=== PATIENT | female | born 1965 | race African-American/Black ===

== ENCOUNTER 2016-07-03 11:11 | Emergency (ER) | payer SELFPAY ==
[~2016-07-03] VITALS: Ht 180.3 cm; Wt 60.0 kg
[~2016-07-03 11:11] MED LIST: NAPROSYN500 MG PO; OXYCO/APAP1 TA5 PO; PERCOCET 5/325M1 TAB PO
[2016-07-03] MEDS ORDERED: BUPROPION150 M3 PO (11:50)
[2016-07-03] MEDS ORDERED: TRAZODONE50 MG PO (11:50)
[2016-07-03 12:05] LABS: HEMATOCRIT 37.4 % (37.0-47.0); HEMOGLOBIN 12.6 g/dl (12.0-16.0); IMMATURE GRANULOCYTES 0.2 % (0.0-1.0); MEAN CELL VOLUME 94.4 fL CALC (80.0-100.0); MEAN CORPUSCULAR HGB 31.8 pG CALC (26.0-32.0); MEAN CORPUSCULAR HGB CONC 33.7 g/L CALC (32.0-36.0); NEUT# 3.45 thou/uL (2.00-7.15); RED BLOOD COUNT 3.96 mill/uL (4.20-5.60); RED CELL DISTRI WIDTH 14.2 % (11.5-15.5)
[2016-07-03 12:56] LABS: ALBUMIN 4.1 g/dL (3.2-5.0); ALKALINE PHOSPHATASE 78 u/l (38-126); ANION GAP 12 (6-22 (CALC)); BILIRUBIN, TOTAL 0.7 mg/dL (0.0-1.4); BUN 12 mg/dL (7-17); BUN/CREATININE RATIO 15 (12-20 (CALC)); CALCIUM 8.9 mg/dL (8.4-10.2); CARBON DIOXIDE 27 mmol/l (22-30); CHLORIDE 105 mmol/l (95-108); CREATININE 0.8 mg/dL (0.5-1.0); GFR > 60 ML/MIN (>=60 (CALC)); GFR FOR AFR.AMER. > 60 ML/MIN (>=60 (CALC)); GLUCOSE 93 mg/dL (65-105); POTASSIUM 4.1 mmol/l (3.5-5.1); SGOT/AST 45 u/l (14-36); SGPT/ALT 18 u/l (9-52); SODIUM 141 mmol/l (137-146); TOTAL PROTEIN 7.8 g/dL (6.3-8.2)
[2016-07-03 13:15] LABS: MYOGLOBIN 24 ng/mL (0 - 62)
[2016-07-03] MEDS ORDERED: NEXIUM40 M1 PO (13:54)
[2016-07-03 14:29] VITALS: BP 108/56
== END 2016-07-03 14:29 | disposition home or self-care (01) | DRG 392 ==
LOC: ED 11:11
PROVIDERS: Emergency Medicine
DX: K21.9 Gastro-esophageal reflux disease without esophagitis (principal); F32.9 Major depressive disorder, single episode, unspecified; F17.210 Nicotine dependence, cigarettes, uncomplicated; Z85.3 Personal history of malignant neoplasm of breast; Z90.13 Acquired absence of bilateral breasts and nipples

== ENCOUNTER 2017-02-05 11:29 | Emergency (ER) | payer SELFPAY ==
[~2017-02-05] VITALS: Ht 180.3 cm; Wt 60.0 kg
[~2017-02-05 11:29] MED LIST changes: +BUPROPION150 M3 PO; +NEXIUM40 M1 PO; +TRAZODONE50 MG PO
[2017-02-05 12:34] LABS: HEMATOCRIT 38.4 % (37.0-47.0); HEMOGLOBIN 12.7 g/dl (12.0-16.0); IMMATURE GRANULOCYTES 0.2 % (0.0-1.0); MEAN CELL VOLUME 95.5 fL CALC (80.0-100.0); MEAN CORPUSCULAR HGB 31.6 pG CALC (26.0-32.0); MEAN CORPUSCULAR HGB CONC 33.1 g/L CALC (32.0-36.0); NEUT# 3.04 thou/uL (2.00-7.15); RED BLOOD COUNT 4.02 mill/uL (4.20-5.60); RED CELL DISTRI WIDTH 13.5 % (11.5-15.5)
[2017-02-05 12:39] LABS: INTERNATIONAL NORMALIZED RATIO 0.9 RATIO (0.7-1.3); PROTHROMBIN TIME 10.1 SECONDS (9.0-12.5)
[2017-02-05 12:55] LABS: ALBUMIN 4.2 g/dL (3.2-5.0); ALKALINE PHOSPHATASE 106 u/l (38-126); ANION GAP 14 (6-22 (CALC)); BILIRUBIN, TOTAL 0.3 mg/dL (0.0-1.4); BUN 16 mg/dL (7-17); BUN/CREATININE RATIO 19 (12-20 (CALC)); CALCIUM 9.6 mg/dL (8.4-10.2); CARBON DIOXIDE 26 mmol/l (22-30); CHLORIDE 107 mmol/l (95-108); CREATININE 0.8 mg/dL (0.5-1.0); GFR > 60 ML/MIN (>=60 (CALC)); GFR FOR AFR.AMER. > 60 ML/MIN (>=60 (CALC)); GLUCOSE 100 mg/dL (65-105); POTASSIUM 4.2 mmol/l (3.5-5.1); SGOT/AST 35 u/l (14-36); SGPT/ALT 44 u/l (9-52); SODIUM 142 mmol/l (137-146)
[2017-02-05 13:05] LABS: MYOGLOBIN 23 ng/mL (0 - 62)
[2017-02-05] MEDS ORDERED: EC-NAPROSYN500 MG PO (15:43)
[2017-02-05] MEDS ORDERED: LORTAB 5/3255 MG PO (15:43)
[2017-02-05 15:52] VITALS: BP 132/70
== END 2017-02-05 16:00 | disposition home or self-care (01) | DRG 313 ==
LOC: ED 11:29
PROVIDERS: Emergency Medicine
DX: R07.89 Other chest pain (principal); Z85.3 Personal history of malignant neoplasm of breast
CPT/HCPCS: J1650; Q9967

== ENCOUNTER 2017-03-18 19:24 | Emergency (ER) | payer SELFPAY ==
[~2017-03-18] VITALS: Ht 180.3 cm; Wt 59.0 kg
[~2017-03-18 19:24] MED LIST changes: +EC-NAPROSYN500 MG PO; +LORTAB 5/3255 MG PO
[2017-03-18] MEDS ORDERED: LORTAB 1010 MG PO (22:23)
[2017-03-18 22:30] VITALS: BP 149/86
== END 2017-03-18 22:30 | disposition home or self-care (01) | DRG 552 ==
LOC: ED 19:24
DX: S32.039A Unspecified fracture of third lumbar vertebra, initial encounter for closed fracture (principal); M54.6 Pain in thoracic spine; R20.0 Anesthesia of skin; Y93.83 Activity, rough housing and horseplay; Y92.009 Unspecified place in unspecified non-institutional (private) residence as the place of occurrence of the external cause

== ENCOUNTER 2017-05-01 23:19 | Emergency (ER) | payer SELFPAY ==
[~2017-05-01] VITALS: Ht 180.3 cm; Wt 60.2 kg
[~2017-05-01 23:19] MED LIST changes: +LORTAB 1010 MG PO
[2017-05-02] MEDS ORDERED: PERCOCET 5/325M1 TAB PO (02:06)
[2017-05-02 03:00] VITALS: BP 122/67
== END 2017-05-02 03:30 | disposition home or self-care (01) | DRG 563 ==
LOC: ED 23:19
PROC: 2W3CX1Z Immobilization of Right Lower Arm using Splint (ICD-10-PCS; principal; 2017-05-02)
DX: S52.501A Unspecified fracture of the lower end of right radius, initial encounter for closed fracture (principal); R07.89 Other chest pain; S52.611A Displaced fracture of right ulna styloid process, initial encounter for closed fracture; W01.0XXA Fall on same level from slipping, tripping and stumbling without subsequent striking against object, initial encounter; Y93.9 Activity, unspecified; Y92.410 Unspecified street and highway as the place of occurrence of the external cause

== ENCOUNTER 2017-06-23 14:42 | Emergency (ER) | payer SELFPAY ==
[~2017-06-23] VITALS: Ht 180.3 cm; Wt 65.0 kg
[2017-06-23] MEDS ORDERED: MOTRIN400 MG PO (16:24)
[2017-06-23 16:30] VITALS: BP 119/65
== END 2017-06-23 16:30 | disposition home or self-care (01) | DRG 313 ==
LOC: ED 14:42
DX: R07.89 Other chest pain (principal); F32.9 Major depressive disorder, single episode, unspecified; G47.00 Insomnia, unspecified; Z85.3 Personal history of malignant neoplasm of breast

== ENCOUNTER 2018-01-04 21:03 | Emergency (ER) | payer SELFPAY ==
[~2018-01-04] VITALS: Ht 180.3 cm; Wt 59.0 kg
[~2018-01-04 21:03] MED LIST changes: +MOTRIN400 MG PO
[2018-01-04 22:07] LABS: URINE BILIRUBIN - DIPSTICK NEGATIVE (NEGATIVE); URINE BLOOD DIPSTICK SMALL (NEGATIVE); URINE COLOR YELLOW; URINE GLUCOSE - DIPSTICK NEGATIVE (NEGATIVE); URINE KETONE TRACE mg/dL (NEGATIVE); URINE LEUK ESTERASE NEGATIVE (NEGATIVE); URINE NITRITE - DIPSTICK NEGATIVE (Negative); URINE PROTEIN - DIPSTICK NEGATIVE (NEG-TRACE); URINE SPECIFIC GRAVITY >=1.030; URINE UROBILINOGEN - DIPSTICK 0.2 E.U./dL (0.2)
[2018-01-04 22:10] LABS: URINE CLARITY HAZY
[2018-01-04 22:16] LABS: URINE CALCIUM OXALATE CRYSTALS FEW lpf; URINE RBC 0-2 RBC/hpf (0-5); URINE SQUAMOUS EPITHELIAL CELL FEW EPI/hpf (0-FEW)
[2018-01-04 22:19] LABS: INFLUENZA A NONE DETECTED (NONE DETECT); INFLUENZA B NONE DETECTED (NONE DETECT)
[2018-01-04 22:56] LABS: HEMATOCRIT 38.6 % (37.0-47.0); HEMOGLOBIN 12.8 g/dl (12.0-16.0); IMMATURE GRANULOCYTES 0.4 % (0.0-5.0); MEAN CORPUSCULAR HGB 31.8 pG CALC (26.0-32.0); MEAN CORPUSCULAR HGB CONC 33.2 g/L CALC (32.0-36.0); NEUT# 4.18 thou/uL (2.00-7.15); RED BLOOD COUNT 4.02 mill/uL (4.20-5.60); RED CELL DISTRI WIDTH 14.7 % (11.5-15.5)
[2018-01-04 23:03] LABS: ALBUMIN 4.1 g/dL (3.2-5.0); ALKALINE PHOSPHATASE 91 u/l (38-126); ANION GAP 14 (6-22 (CALC)); BILIRUBIN, TOTAL 0.3 mg/dL (0.0-1.4); BUN 11 mg/dL (7-17); BUN/CREATININE RATIO 16 (12-20 (CALC)); CARBON DIOXIDE 25 mmol/l (22-30); CHLORIDE 104 mmol/l (95-108); CREATININE 0.7 mg/dL (0.5-1.0); GFR > 60 ML/MIN (>=60 (CALC)); GFR FOR AFR.AMER. > 60 ML/MIN (>=60 (CALC)); POTASSIUM 3.9 mmol/l (3.5-5.1); SGOT/AST 24 u/l (14-36); SODIUM 139 mmol/l (137-146); TOTAL PROTEIN 7.2 g/dL (6.3-8.2)
[2018-01-04] MEDS ORDERED: BACTRIM DS1 TAB PO (23:06)
[2018-01-04] MEDS ORDERED: ROBITUSSIN AC10 ML PO (23:06)
[2018-01-05 00:12] VITALS: BP 96/54
== END 2018-01-05 00:12 | disposition home or self-care (01) | DRG 153 ==
LOC: ED 21:03
PROVIDERS: Emergency Medicine
DX: J06.9 Acute upper respiratory infection, unspecified (principal); N39.0 Urinary tract infection, site not specified; F32.9 Major depressive disorder, single episode, unspecified; F17.200 Nicotine dependence, unspecified, uncomplicated; G47.00 Insomnia, unspecified; Z85.3 Personal history of malignant neoplasm of breast

== ENCOUNTER 2019-01-01 18:01 | Emergency (ER) | payer OTHER ==
[~2019-01-01] VITALS: Ht 180.3 cm; Wt 61.0 kg
[~2019-01-01 18:01] MED LIST changes: +BACTRIM DS1 TAB PO; +ROBITUSSIN AC10 ML PO
[2019-01-01] MEDS ORDERED: NAPROXEN500 MG PO (20:11)
[2019-01-01 20:15] VITALS: BP 114/57
== END 2019-01-01 20:20 | disposition home or self-care (01) | DRG 552 ==
LOC: ED 18:01
DX: S13.9XXA Sprain of joints and ligaments of unspecified parts of neck, initial encounter (principal); S33.5XXA Sprain of ligaments of lumbar spine, initial encounter; S20.211A Contusion of right front wall of thorax, initial encounter; V43.62XA Car passenger injured in collision with other type car in traffic accident, initial encounter

== ENCOUNTER 2020-04-26 16:48 | Emergency (ER) | payer SELFPAY ==
[~2020-04-26] VITALS: Ht 180.3 cm; Wt 59.0 kg
[~2020-04-26 16:48] MED LIST changes: +NAPROXEN500 MG PO
[2020-04-26 18:00] VITALS: BP 147/88
[2020-04-26 18:07] LABS: HEMATOCRIT 38.9 % (37.0-47.0); HEMOGLOBIN 12.7 g/dl (12.0-16.0); IMMATURE GRANULOCYTES 0.2 % (0.0-5.0); MEAN CELL VOLUME 94.9 fL CALC (80.0-100.0); MEAN CORPUSCULAR HGB CONC 32.6 g/dL CAL (32.0-36.0); NEUT# 9.05 thou/uL (2.00-7.15); RED BLOOD COUNT 4.1 mill/uL (4.20-5.60); RED CELL DISTRI WIDTH 14.1 % (11.5-15.5)
[2020-04-26] MEDS ORDERED: LORTAB 1010 MG PO (18:20)
[2020-04-26] MEDS ORDERED: KEFLEX500 M1 PO (18:20)
[2020-04-26] MEDS ORDERED: BACTRIM DS1 TAB PO (18:20)
[2020-04-26 18:25] LABS: ALBUMIN 4.5 g/dL (3.2-5.0); ALKALINE PHOSPHATASE 87 u/l (38-126); ANION GAP 10 (6-22 (CALC)); BUN 9 mg/dL (7-17); BUN/CREATININE RATIO 12 (12-20 (CALC)); CARBON DIOXIDE 28 mmol/l (22-30); CHLORIDE 101 mmol/l (95-108); CREATININE 0.8 mg/dL (0.5-1.0); GFR > 60 ML/MIN (>=60 (CALC)); GFR FOR AFR.AMER. > 60 ML/MIN (>=60 (CALC)); POTASSIUM 3.7 mmol/l (3.5-5.1); SGOT/AST 28 u/l (14-36); SODIUM 135 mmol/l (137-146); TOTAL PROTEIN 7.9 g/dL (6.3-8.2)
[2020-04-26 18:52] LABS: BILIRUBIN, TOTAL 0.7 mg/dL (0.0-1.4)
== END 2020-04-26 18:30 | disposition home or self-care (01) | DRG 603 ==
LOC: ED 16:48
PROVIDERS: Emergency Medicine
PROC: 0H98XZZ Drainage of Buttock Skin, External Approach (ICD-10-PCS; principal; 2020-04-26)
DX: L02.31 Cutaneous abscess of buttock (principal); F32.9 Major depressive disorder, single episode, unspecified

== ENCOUNTER 2020-04-27 17:57 | Emergency (ER) | payer SELFPAY ==
[~2020-04-27] VITALS: Ht 180.3 cm; Wt 65.0 kg
[~2020-04-27 17:57] MED LIST changes: +KEFLEX500 M1 PO
[2020-04-27 19:50] VITALS: BP 128/81
== END 2020-04-27 19:50 | disposition home or self-care (01) | DRG 951 ==
LOC: ED 17:57
DX: Z48.01 Encounter for change or removal of surgical wound dressing (principal)

== ENCOUNTER 2022-08-18 10:49 | Emergency (ER) | payer SELFPAY ==
[~2022-08-18] VITALS: Ht 180.3 cm; Wt 70.0 kg
[2022-08-18] VITALS (11 sets, daily range): BP systolic 113–145; BP diastolic 60–85
[2022-08-18 11:43] LABS: BASO% 0.3 % (0-3); EOS% 1.5 % (0-8); HEMATOCRIT 36.4 % (37.0-47.0); HEMOGLOBIN 11.7 g/dl (12.0-16.0); IMMATURE GRANULOCYTES 0.2 % (0.0-5.0); MEAN CELL VOLUME 96.6 fL CALC (80.0-100.0); MEAN CORPUSCULAR HGB CONC 32.1 g/dL CAL (32.0-36.0); MONO% 5.9 % (2-13); NEUT# 4.34 thou/uL (2.00-7.15); NEUT% 65.1 % (42-76); RED BLOOD COUNT 3.77 mill/uL (4.20-5.60)
[2022-08-18 12:02] LABS: ALKALINE PHOSPHATASE 86 u/l (38-126); ANION GAP 11 (6-22 (CALC)); BUN 12 mg/dL (7-17); BUN/CREATININE RATIO 16 (12-20 (CALC)); CARBON DIOXIDE 27 mmol/l (22-30); CHLORIDE 107 mmol/l (95-108); CREATININE 0.8 mg/dL (0.5-1.0); GFR FOR AFR.AMER. > 60 ML/MIN (>=60 (CALC)); GFR OTHER RACES > 60 ML/MIN (>=60 (CALC)); LIPASE 17 u/l (23-300); POTASSIUM 3.6 mmol/l (3.5-5.1); SGOT/AST 29 u/l (14-36); SODIUM 141 mmol/l (137-146); TOTAL PROTEIN 6.7 g/dL (6.3-8.2)
[2022-08-18 12:03] LABS: BILIRUBIN, TOTAL 0.1 mg/dL (0.02-1.3)
[2022-08-18] MEDS ORDERED: ZPAK PO (16:38)
== END 2022-08-18 17:00 | disposition home or self-care (01) | DRG 153 ==
LOC: ED 10:49
PROVIDERS: Nurse Practitioner
DX: J06.9 Acute upper respiratory infection, unspecified (principal); F32.A Depression, unspecified; Z20.822 Contact with and (suspected) exposure to COVID-19
CPT/HCPCS: Q9967

== ENCOUNTER 2022-09-12 09:01 | Emergency (ER) | payer SELFPAY ==
[~2022-09-12] VITALS: Ht 180.3 cm; Wt 65.9 kg
[2022-09-12] VITALS (9 sets, daily range): BP systolic 79–132; BP diastolic 59–93
[~2022-09-12 09:01] MED LIST changes: +ZPAK PO
[2022-09-12] MEDS ORDERED: CYCLOBENZAPRINE10 MG PO (10:39)
[2022-09-12] MEDS ORDERED: PREDNISONE50 MG PO (10:39)
[2022-09-12] MEDS ORDERED: NAPROXEN500 MG PO (10:39)
== END 2022-09-12 11:10 | disposition home or self-care (01) | DRG 554 ==
LOC: ED 09:01
DX: M16.11 Unilateral primary osteoarthritis, right hip (principal)

== ENCOUNTER 2023-04-15 10:38 | Emergency (ER) | payer OTHER ==
[~2023-04-15] VITALS: Ht 180.3 cm; Wt 63.5 kg
[2023-04-15] VITALS (15 sets, daily range): BP systolic 108–148; BP diastolic 55–86
[~2023-04-15 10:38] MED LIST changes: +CYCLOBENZAPRINE10 MG PO; +PREDNISONE50 MG PO
[2023-04-15] MEDS ORDERED: DiphenhydrAMINE HCL 50 MG/ML SDV IV ONE (12:05)
[2023-04-15] MEDS ORDERED: KETOROLAC TROMETHAMINE 30 MG/ML SDV IV ONE (12:05)
[2023-04-15] MEDS ORDERED: METOCLOPRAMIDE HCL 10 MG/2 ML SDV IV ONE (12:05)
[2023-04-15] MEDS ORDERED: SODIUM CHLORIDE 0.9% 1,000 ML IV ONE (12:35)
[2023-04-15 13:08] LABS: BASO% 0.3 % (0-3); EOS% 1.8 % (0-8); HEMATOCRIT 36.4 % (37.0-47.0); HEMOGLOBIN 11.5 g/dl (12.0-16.0); IMMATURE GRANULOCYTES 0.2 % (0.0-5.0); LYMPH% 38.3 % (15-41); MEAN CELL VOLUME 97.6 fL CALC (80.0-100.0); MEAN CORPUSCULAR HGB 30.8 pG CALC (26.0-32.0); MEAN CORPUSCULAR HGB CONC 31.6 g/dL CAL (32.0-36.0); MONO% 7.5 % (2-13); NEUT# 3.1 thou/uL (2.00-7.15); NEUT% 51.9 % (42-76); RED BLOOD COUNT 3.73 mill/uL (4.20-5.60); RED CELL DISTRI WIDTH 14.4 % (11.5-15.5)
[2023-04-15 13:33] LABS: ALBUMIN 3.8 g/dL (3.2-5.0); ALKALINE PHOSPHATASE 78 u/l (38-126); BUN 12 mg/dL (7-17); BUN/CREATININE RATIO 21 (12-20 (CALC)); CARBON DIOXIDE 25 mmol/l (22-30); CHLORIDE 109 mmol/l (95-108); CREATININE 0.6 mg/dL (0.5-1.0); GFR FOR AFR.AMER. > 60 ML/MIN (>=60 (CALC)); GFR OTHER RACES > 60 ML/MIN (>=60 (CALC)); SGOT/AST 36 u/l (14-36); SODIUM 138 mmol/l (137-146); TOTAL PROTEIN 6.5 g/dL (6.3-8.2)
[2023-04-15 13:36] LABS: ANION GAP 9 (6-22 (CALC)); BILIRUBIN, TOTAL 0.4 mg/dL (0.02-1.3); POTASSIUM 4.5 mmol/l (3.5-5.1)
[2023-04-15] MEDS ORDERED: ORPHENADRINE CITRATE 30 MG/ML AMP IV ONE (14:55)
[2023-04-15] MEDS ORDERED: NAPROXEN500 MG PO (15:05)
[2023-04-15] MEDS ORDERED: METHOCARBAMOL500 MG PO (15:05)
== END 2023-04-15 15:26 | disposition home or self-care (01) | DRG 103 ==
LOC: ED 10:38
PROVIDERS: Nurse Practitioner
DX: R51.9 Headache, unspecified (principal); Z20.822 Contact with and (suspected) exposure to COVID-19

== ENCOUNTER 2024-02-14 12:46 | Emergency (ER) | payer OTHER ==
[~2024-02-14] VITALS: Ht 180.3 cm; Wt 58.9 kg
[2024-02-14] VITALS (12 sets, daily range): BP systolic 129–197; BP diastolic 71–119
[~2024-02-14 12:46] MED LIST changes: +MEDDOSEPAK PO; +METHOCARBAMOL500 MG PO; +PREDNISONE20 MG PO
[2024-02-14] MEDS ORDERED: GUAIFENESIN 200 MG/10 ML UDC PO ONE (14:20)
[2024-02-14 14:41] LABS: BASO% 0.4 % (0-3); EOS% 1.5 % (0-8); HEMATOCRIT 38.6 % (37.0-47.0); HEMOGLOBIN 12.4 g/dl (12.0-16.0); LYMPH% 37.5 % (15-41); MEAN CORPUSCULAR HGB 31.5 pG CALC (26.0-32.0); MEAN CORPUSCULAR HGB CONC 32.1 g/dL CAL (32.0-36.0); MONO% 6.7 % (2-13); NEUT# 2.92 thou/uL (2.00-7.15); NEUT% 53.9 % (42-76); RED BLOOD COUNT 3.94 mill/uL (4.20-5.60)
[2024-02-14 14:54] LABS: URINE BILIRUBIN - DIPSTICK Negative (NEGATIVE); URINE BLOOD DIPSTICK Negative (NEGATIVE); URINE GLUCOSE - DIPSTICK Negative (NEGATIVE); URINE KETONE Negative (NEGATIVE); URINE LEUK ESTERASE Negative (NEGATIVE); URINE NITRITE - DIPSTICK Negative (Negative); URINE PH 5.5 (4.5-8.0); URINE PROTEIN - DIPSTICK Negative (NEG-TRACE); URINE SPECIFIC GRAVITY 1.025; URINE UROBILINOGEN - DIPSTICK 0.2 E.U./dL (0.2)
[2024-02-14 14:55] LABS: URINE COLOR Yellow
[2024-02-14 15:11] LABS: ALBUMIN 4.1 g/dL (3.2-5.0); BILIRUBIN, TOTAL 0.4 mg/dL (0.02-1.3); CREATININE 0.7 mg/dL (0.5-1.0); POTASSIUM 4.1 mmol/l (3.5-5.1); TOTAL PROTEIN 7.2 g/dL (6.3-8.2)
== END 2024-02-14 15:53 | disposition home or self-care (01) ==
LOC: ED 12:46
PROVIDERS: Nurse Practitioner Family
DX: R05.9 Cough, unspecified (principal); F32.A Depression, unspecified; Z72.0 Tobacco use; Z85.3 Personal history of malignant neoplasm of breast; Z20.822 Contact with and (suspected) exposure to COVID-19

== ENCOUNTER 2024-03-21 15:29 | Emergency (ER) | payer OTHER ==
[~2024-03-21] VITALS: Ht 180.3 cm; Wt 55.8 kg
[2024-03-21 18:20] VITALS: BP 112/62
[2024-03-21 18:37] LABS: URINE BLOOD DIPSTICK Small (NEGATIVE); URINE GLUCOSE - DIPSTICK Negative (NEGATIVE); URINE KETONE 15 mg/dL (NEGATIVE); URINE LEUK ESTERASE Trace (NEGATIVE); URINE NITRITE - DIPSTICK Negative (Negative); URINE PH 5.5 (4.5-8.0); URINE PROTEIN - DIPSTICK Negative (NEG-TRACE)
[2024-03-21 18:38] LABS: BASO% 0.1 % (0-3); EOS% 0.2 % (0-8); HEMATOCRIT 36.6 % (37.0-47.0); IMMATURE GRANULOCYTES 0.3 % (0.0-5.0); LYMPH% 16.5 % (15-41); MEAN CELL VOLUME 95.1 fL CALC (80.0-100.0); MEAN CORPUSCULAR HGB 31.2 pG CALC (26.0-32.0); MEAN CORPUSCULAR HGB CONC 32.8 g/dL CAL (32.0-36.0); NEUT# 11.05 thou/uL (2.00-7.15); NEUT% 79.9 % (42-76); RED BLOOD COUNT 3.85 mill/uL (4.20-5.60); RED CELL DISTRI WIDTH 13.8 % (11.5-15.5)
[2024-03-21 18:39] LABS: URINE COLOR Dark yellow
[2024-03-21 18:45] LABS: URINE SQUAMOUS EPITHELIAL CELL FEW EPI/hpf (0-FEW)
[2024-03-21 18:46] LABS: URINE BACTERIA FEW hpf; URINE MUCUS FEW hpf (NONE-FEW)
[2024-03-21 18:47] LABS: URINE TRICHOMONAS FEW hpf
[2024-03-21 18:50] LABS: BILIRUBIN, TOTAL 0.8 mg/dL (0.02-1.3); CREATININE 0.8 mg/dL (0.5-1.0); POTASSIUM 3.9 mmol/l (3.5-5.1); TOTAL PROTEIN 6.9 g/dL (6.3-8.2)
[2024-03-21 19:03] VITALS: BP 112/62
[2024-03-21] MEDS ORDERED: CEPHALEXIN500 M1 PO (19:04)
== END 2024-03-21 19:12 | disposition home or self-care (01) | DRG 690 ==
LOC: ED 15:29
PROVIDERS: Family Medicine
DX: N39.0 Urinary tract infection, site not specified (principal); Z72.0 Tobacco use; Z20.822 Contact with and (suspected) exposure to COVID-19